=== PATIENT | male | born 1995 | race Caucasian/White ===

== ENCOUNTER 2017-05-19 20:39 | Emergency (ER) | payer OTHER ==
[~2017-05-19] VITALS: Ht 172.7 cm; Wt 82.3 kg
[2017-05-19] MEDS ORDERED: FIORICET 50-301 EAC1 PO (22:33)
[2017-05-19 22:51] VITALS: BP 145/84
== END 2017-05-19 23:10 | disposition home or self-care (01) ==
LOC: EME 20:39
DX: R51 Headache (principal); I10 Essential (primary) hypertension; M26.609 Unspecified temporomandibular joint disorder, unspecified side; F17.200 Nicotine dependence, unspecified, uncomplicated
CPT/HCPCS: 70450; 99281; 99284